=== PATIENT | female | born 1995 | race Caucasian/White ===

== ENCOUNTER 2021-07-03 00:09 | Inpatient (IN) | payer OTHER, SELFPAY ==
[2021-07-03] VITALS (37 sets, daily range): BP systolic 104–133; BP diastolic 54–91; PULSE 90–154; RESP 16–34; TEMP 36.2–38.1; O2SAT 93–100; BMI 25.7; BMI 41.4
--- NOTE | ~2021-07-03 | XR_ITS ---
EXAMINATION: XR chest 1V portable INDICATION: Cough and pneumomediastinum TECHNIQUE: Portable AP chest at 0845 hours COMPARISON: 0048 hours FINDINGS: The lungs are free of acute opacities. There is no pleural effusion or pneumothorax. Mild p neumomediastinum is again noted and not significantly changed. The heart size is normal. IMPRESSION: 1. Unchanged mild pneumomediastinum. Reviewed, dictated and finalized at location B.
--- NOTE | ~2021-07-03 | CT_ITS ---
EXAMINATION: CTA chest PE protocol EXAM DATE: 07/03/2021 01:33 INDICATION: Positive dimer. TECHNIQUE: Spiral CTA of the chest (pulmonary arteries) was performed with 100 cc Omnipaque 350 intr avenous contrast injection. Images were acquired during the pulmonary arterial phase. Coronal maxi mum intensity projection 3D-reconstructions were created by the technologist on dedicated workstation . Axial, coronal and sagittal reformatted images were reviewed. The dose-length product (DLP) for t his examination was 385.75 mGy-cm. The exposure was tailored according to patient size (auto mA exp osure control), and iterative reconstruction (ASIR) was used as additional dose reduction technique. There is no prior study for comparison. FINDINGS: There is moderate amount of pneumomediastinum. Pulmonary arteries are well opacified and wi thout intraluminal filling defects. No thoracic aortic dissection. Several small regions of groundg lass airspace disease, probably acute pneumonitis. Small pericardial effusion. Tracheobronchial tree is patent. There is no mediastinal, hilar or axi llary lymphadenopathy. There is moderate amount pneumomediastinum. There is no pneumothorax. Heart normal in size. No evidence of coronary arterial calcification. Upper abdomen is unremarkable. T here is thoracic spondylosis without osteoblastic or osteolytic lesions identified. IMPRESSION: 1. Moderate pneumomediastinum. 2. Several small regions groundglass airspace disease probably acute pneumonitis. Could be viral. 3. No pneumothorax suspected. Reviewed, dictated and finalized at location A. IMPRESSION: 1. Moderate pneumomediastinum. 2. Several small regions groundglass airspace disease probably acute pneumonit is. Could be viral. 3. No pneumothorax suspected.
--- NOTE | ~2021-07-03 | XR_ITS ---
EXAMINATION: XR chest 1V portable DATE: 07/04/2021 06:05 INDICATION: Pneumomediastinum TECHNIQUE: frontal view of the chest was obtained. COMPARISON: Chest radiograph dated 07/03/2021 FINDINGS: The lungs remain clear with no focal airspace opacities, pulmonary edema, pleural effusion or pneumot horax. Heart size is normal. Decrease in small amount of pneumomediastinum near the apex of the heart and at the superior mediastinum extending into the neck. IMPRESSION: 1. Decreasing mild pneumomediastinum. Clear lungs. Reviewed, dictated and finalized at location A.
--- NOTE | ~2021-07-03 | XR_ITS ---
EXAMINATION: XR chest 1V portable DATE: 07/05/2021 06:10 INDICATION: Cough TECHNIQUE: frontal view of the chest was obtained. COMPARISON: Chest radiograph dated 07/04/2021 FINDINGS: The lungs remain clear with no focal airspace opacities, pulmonary edema, pleural effusion or pneumot horax. The cardiomediastinal silhouette is normal. Visualized bones and soft tissues are unremarkable . IMPRESSION: 1. Normal chest radiograph. Reviewed, dictated and finalized at location A. IMPRESSION: 1. Normal chest radiograph.
--- NOTE | ~2021-07-03 | XR_ITS ---
EXAMINATION: XR chest 2V DATE: 07/03/2021 00:56 INDICATION: Chest tightness and shortness of breath TECHNIQUE: PA and lateral views of the chest were obtained. COMPARISON: Chest CT dated 07/03/2021 FINDINGS: The lungs are clear with no focal airspace opacities, pulmonary edema, pleural effusion or pneumothor ax. Heart size is normal. There is some pneumomediastinum seen near the apex of the heart and in the superior mediastinum extending into the neck. Visualized bones are unremarkable. IMPRESSION: 1. Pneumomediastinum which extends to the apex of the heart cephalad into the neck. 2. Clear lungs. Reviewed, dictated and finalized at location A. IMPRESSION: 1. Pneumomediastinum which extends to the apex of the heart cephalad into the n jerome. 2. Clear lungs.
--- NOTE | 2021-07-03 00:24 | ECG_ITS ---
Measurements Intervals [place] Rate: 141 P: 61 IA: 143 QRS: 104 QRSD: 78 T: 34 QT: 328 QTc: 504 Interpretive Statements SINUS TACHYCARDIA RIGHT AXIS DEVIATION DELAYED PRECORDIAL R/S TRANSITION LOW QRS VOLTAGE IN PRECORDIAL LEADS BORDERLINE ST-T WAVE ABNORMALITY- INFERIOR LEADS BASELINE ARTIFACT- I, II, III, AVR, AVL, AVF, V1, V3 ABNORMAL ECG Electronically Signed On 07-03-2021 6:16:04 CDT by Martinez Anthony D.O.
--- NOTE | 2021-07-03 00:27 | ED.GENADULT ---
HPI - General Adult General Chief complaint: Shortness of Breath/Dyspnea Stated complaint: shortness of breath Time Seen by Provider: 07/03/21 00:11 Source: patient Mode of arrival: ambulatory Limitations: no limitations History of Present Illness HPI narrative: Pt presents for evaluation of shortness of breath and chest tightness. She indicates symptoms started this morning. No history of similar symptoms. She cannot identify any precipitating event or cause. She states about one month ago she was on a cruise in [place] when she had what she thought was an ear infection. On further discussion it sounds as though she felt like her ear was clogged . She irrigated the ear and had improvement in her symptoms. She was never seen by a healthcare provider regarding this issue. Over the last week she has noted a headache and sinus congestion. Her symptoms seemed worse when she woke from sleep this am. She has noted hot flashes and chills today without vomiting or diarrhea. She does report coughing so hard that she feels nauseous. She is not on exogenous estrogen. No recent surgeries. No leg swelling. She does not smoke. No personal history of DVT, although her grandfather had a hx of clots. Her grandfather from [employer] in May of this year. She has received both doses of her [employer] COVID vaccine. No personal history of COVID. She states she had a hx of exercise induced asthma as a child but thought that she outgrew it. Related Data Home Medications Medication Instructions Recorded Confirmed No Home Medications 07/03/21 07/03/21 Allergies Allergy/AdvReac Type Severity Reaction Status Date / Time azithromycin Allergy Intermediate HIVES Verified 10/08/17 05:26 Review of Systems Review of Systems: CONSTITUTIONAL: Reports chills and subjective fever EYES: Denies visual changes, redness, or discharge. ENT: Reports left-sided otalgia and sinus congestion. Denies rhinorrhea or sore throat CARDIOVASCULAR: Reports chest tightness. Denies palpitations, or edema. RESPIRATORY: Reports productive cough of yellow sputum and SOB. GASTROINTESTINAL: Reports nausea with coughing episodes. Denies abdominal pain, vomiting, or diarrhea. GENITOURINARY: Denies dysuria or hematuria. SKIN: Denies rash or itching. MUSCULOSKELETAL: Denies back pain, joint pain, or myalgia. NEUROLOGIC: Denies headache, numbness, dizziness, or weakness. PSYCHIATRIC: Denies anxiety or depression. PMFSH Past Medical History Medical History (Updated 07/03/21 @ 02:39 by JENNIFER Vera, ) Asthma Surgical History Surgical History No pertinent past surgical history Family History Family History Mother No pertinent past medical history Social History Social History Smoking status: Never smoker Alcohol intake: current Alcohol use details: social Substance use: never Living arrangements: with family Gender identity (if verbalized by the patient): Female Sexual Orientation (if Verbalized by the Patient): Straight or Heterosexual Spiritual care concerns: No Exam Narrative: GENERAL: Well-appearing, well-nourished, and in no acute distress. HEAD: Normocephalic, atraumatic. EYES: PERRLA and EOMI. ENT: Nares clear, no rhinorrhea or epistaxis. Mucous membranes moist. Oropharynx without tonsillar hypertrophy exudate or other lesions. Bilateral TMs pearly arias nonbulging NECK: Supple. No adenopathy or masses. No carotid bruits or JVD CHEST: Mild inspiratory wheezing noted. Decreased breath sounds throughout HEART: Rate 140. Normal rhythm. No murmur heard. Normal peripheral pulses. ABDOMEN: Soft, nontender, nondistended, normal active bowel sounds. EXTREMITIES: Normal range of motion. No edema. SKIN: Warm, dry, no rash. NEURO: No foc
[2021-07-03] MEDS: ALBUTEROL SULFATE NEB 2.5 MG/3 ML INH INHALATION ×2 (00:33→01:07)
[2021-07-03] MEDS: IPRATROPIUM BR 0.02% INH SOLN 0.5 MG/2.5 ML VIAL INHALATION ×5 (00:33→20:32)
[2021-07-03] MEDS: methylPREDNISolone SOD SUCC 125 MG VIAL IV PUSH (00:36)
[2021-07-03] MEDS: SODIUM CHLORIDE 0.9% IV 1,000 ML 999 ML IV CONT (00:36)
[2021-07-03 00:48] LABS: INR 1.1; Prothrombin Time 13.6 Seconds (11.1-14.7)
[2021-07-03 00:49] LABS: Partial Thromboplastin Time 29.2 SECONDS (22.3-36.8)
[2021-07-03 00:50] LABS: Basophils Absolute Auto 0.1 K/mm3 (0.0-0.1); Basophils Percent Auto 0.3 % (0.2-1.2); Eosinophils Absolute Auto 0.1 K/mm3 (0-0.3); Eosinophils Percent Auto 0.7 % (0-4.4); Hematocrit 42.9 % (37.0-47.0); Hemoglobin 14.2 g/dL (12.0-15.0); Immature Granulocyte Absolute 0.05 K/mm3 (0.00-0.031); Immature Granulocyte Percent A 0.3 % (0-0.5); Lymphocytes Absolute Auto 0.85 K/mm3 (0.9-3.2); Lymphocytes Percent Auto 5.8 % (18.3-44.2); Mean Corpuscular HGB Conc 33.1 g/dl (32-36); Mean Corpuscular Hemoglobin 30.7 pg (26-34); Mean Corpuscular Volume 92.7 fl (80-100); Monocytes Absolute Auto 0.7 K/mm3 (0.1-0.6); Monocytes Percent Auto 4.7 % (2.6-8.5); Neutrophils Percent Auto 88.2 % (45.5-73.1); Platelet Count Result 377 k/mm3 (150-375); Red Blood Count 4.63 M/mm3 (4.2-5.4); Red Cell Distribution Width 11.6 % (11.5-14.5); White Blood Count 14.7 K/mm3 (4.5-10.0)
[2021-07-03 00:51] LABS: D Dimer 0.58 ug/mL (<0.48)
[2021-07-03 00:55] LABS: Alanine Aminotransferase 23 U/L (4-35); Albumin Level 4.2 g/dL (3.5-5.1); Alkaline Phosphatase 84 U/L (38-126); Anion Gap 9 mmol/L (8-16); Aspartate Amino Transferase 26 U/L (14-36); Bilirubin,Total 0.9 mg/dL (0.2-1.3); Blood Urea Nitrogen 10 mg/dL (7-17); Carbon Dioxide 25 mmol/L (22-30); Chloride 101 mmol/L (98-107); Estimated CRCL calculation 111 ml/min; Estimated Glomerular Filt Rate > 60; Glucose 123 mg/dL (65-110); Potassium 4.3 mmol/L (3.4-5.0); Sodium 135 mmol/L (137-145)
[2021-07-03 01:05] LABS: Troponin I < 0.012 ng/mL (0.000-0.034)
[2021-07-03 01:20] LABS: Lactic Acid Reflex 2.5 mmol/L (0.7-2.1)
[2021-07-03 01:39] LABS: Add Urine Microscopic? YES; Appearance Urine Cloudy (Clear); Bacteria Urine Trace /hpf; Bilirubin Urine Negative (Negative); Blood Urine Negative (Negative); Color Urine Yellow (Yellow); Glucose Urine UA Negative (Negative); Ketones Urine Negative (Negative); Leukocyte Esterase Ur Negative LEU/UL (Negative); Mucus Urine Rare /lpf; Nitrate Urine Negative (Negative); Protein Urine 1+ mg/dL (Negative); Squamous Epithelial Cell Urine Many /hpf (Few); Urobilinogen Urine Negative mg/dL (<2.0)
[2021-07-03 01:43] LABS: Specific Grav Ur 1.032 (1.001-1.035)
[2021-07-03 02:24] LABS: CRP 2.7 mg/dL (<1.0); Creatine Kinase 89 U/L (30-135); Lactate Dehydrogenase 460 U/L (313-618)
--- NOTE | 2021-07-03 02:36 | PM.IMHP ---
H&P: HPI History of Present Illness Date/Time: 07/03/21 02:36 Chief Complaint: Cough Narrative: This is a 25-year-old female with past medical history significant for exercise induced asthma as a kid no asthma as an adult, patient presented to the emergency room due to 2 days of cough shortness of breath cough is productive of whitish to greenish sputum subjective fevers,hills, no hemoptysis no sore throat no odynophagia no sick contacts that she is aware of ,she is vaccinated against COVID, denies any nausea any vomiting any abdominal pain any diarrhea she has been having spells of violent cough to the point to make her feel nauseous. Up until this she has been her usual state of health. Preliminary workup was significant for CT angio was negative for pulmonary embolism however it is showed a small pneumomediastinum, no infiltrates, a chest x-ray was clear, CBC showed a white count of 14,000, chemistry panel was unremarkable, CRP was 2.7 and lactic acid was 2.5. Decision has been made to place the patient in observation. Review of Systems Review of Systems: Cough, shortness of breath, headache, nausea. Constitutional: Constitutional: Reports chills, Reports fatigue, Reports fever(s), Reports night sweats and Reports poor appetite Eyes: Eyes: Denies change in vision ENT: Denies dysphagia, Denies vertigo, Denies dizziness, Reports nasal congestion, Denies nasal discharge, Denies nasal obstruction, Denies odynophagia, Reports sinus pressure and Denies sore throat Cardiovascular: Cardiovascular: Denies irregular heart rhythm, Denies claudication, Denies leg edema, Denies lightheadedness, Denies radiating jaw, neck or arm pain, Denies palpitations, Denies dyspnea on exertion, Denies orthopnea and Denies paroxysmal nocturnal dyspnea Respiratory: Respiratory: Reports cough, Denies hemoptysis, Reports excessive phlegm production, Denies pain with cough and Reports dyspnea Gastrointestinal: Gastrointestinal: Denies dyspepsia, Denies heartburn, Reports nausea and Denies vomiting Genitourinary: Genitourinary: Denies dysuria Musculoskeletal: Musculoskeletal: Denies arthralgias and Denies joint swelling Integumentary/Breasts: Skin/Breast: Denies rash Neurologic: Denies focal weakness and Denies Sensory deficit (Neuro) Psychiatric: Psychiatric: Reports no additional psychiatric complaints and Reports as per HPI Endocrine: Endocrine: Reports no additional endocrine complaints and Reports as per HPI Hematologic/Lymphatic: Hematologic/Lymphatic: Reports no additional hematologic/lymphatic complaints and Reports as per HPI Allergic/Immunologic: Allergic/Immunologic: Reports no additional allergic/immunologic complaints and Reports as per HPI [facility] Past Medical History Medical History (Updated 07/03/21 @ 04:01 by Mary Toth MD) Asthma Surgical History Surgical History No pertinent past surgical history Family History Family History Mother No pertinent past medical history Social History Social History Smoking status: Never smoker Second hand tobacco smoke exposure: No Alcohol intake: current Alcohol use details: social Substance use: never Substance use type: does not use Living arrangements: with family Gender identity (if verbalized by the patient): Female Sexual Orientation (if Verbalized by the Patient): Straight or Heterosexual Spiritual care concerns: No Meds Home Medications and Allergies Home Medications Medication Instructions Recorded Confirmed Type No Home Medications 07/03/21 07/03/21 History Allergies Allergy/AdvReac Type Severity Reaction Status Date / Time azithromycin Allergy Intermediate HIVES Verified 10/08/17 05:26 Vital Signs Vital Signs - 24 hr 07/03/21 00:14 07/03/21 00:1
--- NOTE | 2021-07-03 03:34 | PC.NURSE ---
This patient, Frederick Velez, was admitted to [address] [place] [address] Room 300-01. Patient/family oriented to hospital policies and general routines including ID bracelet, bed and alarms, visiting hours, pain management, procedures, bathroom and other care routines, personal items, smoking policy, room service/diet, and visiting hours. Information on how to activate the Rapid Response Team has been discussed. Patient/Family are encouraged to report perceived risks to care and to ask questions if they do not understand what they are told or what they should do.
[2021-07-03] MEDS: SODIUM CHLORIDE 0.9% IV 1,000 ML 125 ML IV CONT (03:37)
[2021-07-03] MEDS: ACETAMINOPHEN 325 MG TABLET 650 MG PO (03:40)
[2021-07-03 04:01] LABS: Reflex Lactic Acid Yes or No Add Lactic
[2021-07-03] MEDS: LEVALBUTEROL NEB 1.25 MG/3 ML 0.63 MG INHALATION ×3 (04:36→20:33)
[2021-07-03 04:50] LABS: Troponin I < 0.012 ng/mL (0.000-0.034)
[2021-07-03] MEDS: methylPREDNISolone SOD SUCC 40 MG VIAL IV PUSH (05:40)
[2021-07-03] MEDS: SODIUM CHLORIDE 0.9% IV 1,000 ML 100 ML IV CONT ×2 (06:55→21:09)
[2021-07-03] MEDS: ENOXAPARIN 40 MG/0.4 ML SYRINGE SUB-Q (07:56)
[2021-07-03] MEDS: guaiFENesin/CODEINE (*CRX) 200/20 MG 10 ML SYRUP PO ×3 (07:57→17:31)
[2021-07-03] MEDS: SODIUM CHLORIDE 0.9% IV 500 ML IV CONT (12:05)
[2021-07-03 12:30] LABS: Basophils Percent Auto 0.1 % (0.2-1.2); Hematocrit 35.4 % (37.0-47.0); Hemoglobin 12.3 g/dL (12.0-15.0); Immature Granulocyte Absolute 0.04 K/mm3 (0.00-0.031); Immature Granulocyte Percent A 0.4 % (0-0.5); Lymphocytes Absolute Auto 0.59 K/mm3 (0.9-3.2); Lymphocytes Percent Auto 6.6 % (18.3-44.2); Mean Corpuscular HGB Conc 34.7 g/dl (32-36); Mean Corpuscular Hemoglobin 30.8 pg (26-34); Mean Corpuscular Volume 88.5 fl (80-100); Mean Platelet Volume 10.1 fl (7.4-10.4); Monocytes Absolute Auto 0.1 K/mm3 (0.1-0.6); Monocytes Percent Auto 1.2 % (2.6-8.5); Neutrophils Absolute Auto 8.2 K/mm3 (1.3-6.7); Neutrophils Percent Auto 91.7 % (45.5-73.1); Platelet Count Result 302 k/mm3 (150-375); Red Cell Distribution Width 11.8 % (11.5-14.5)
[2021-07-03 12:36] LABS: D Dimer 0.43 ug/mL (<0.48)
[2021-07-03 12:43] LABS: Alanine Aminotransferase 23 U/L (4-35); Alkaline Phosphatase 76 U/L (38-126); Anion Gap 11 mmol/L (8-16); Aspartate Amino Transferase 22 U/L (14-36); Bilirubin,Total 0.7 mg/dL (0.2-1.3); Blood Urea Nitrogen 10 mg/dL (7-17); Calcium 9.5 mg/dL (8.4-10.2); Carbon Dioxide 23 mmol/L (22-30); Chloride 105 mmol/L (98-107); Estimated CRCL calculation 134 ml/min; Estimated Glomerular Filt Rate > 60; Glucose 169 mg/dL (65-110); Lactate Dehydrogenase 440 U/L (313-618); Sodium 139 mmol/L (137-145)
[2021-07-03 12:45] LABS: Lactic Acid Reflex 2.8 mmol/L (0.7-2.1)
--- NOTE | 2021-07-03 12:55 | PM.IMPN ---
Progress Note: A&P Assessment and Plan (1) Sepsis: Qualifiers: Sepsis acute organ dysfunction status: unspecified Sepsis type: sepsis due to unspecified organism Qualified Code(s): A41.9 - Sepsis, unspecified organism Code(s): A41.9 - Sepsis, unspecified organism Status: Acute Assessment and Plan: Patient meets SIRS criteria w/ persistent tachycardia in the 110s, leukocytosis of 14.7 w/ left shift. Also had lactate of 2.5 on arrival which trended up to 4.0 this morning. Unclear source of infection at this time. Blood cultures pending. CTA w/ no infiltrates to suggest pneumonia, however did have small ground glass opacities which were favored to be pneumonitis or less likely viral. COVID test pending. She is fully vaccinated. Initially was thought to be asthma vs bronchitis and was receiving nebs and IV steroids. Stopped steroids in the event she has a bacterial infection, lungs were CTA bilaterally on exam. Reduced nebs to q12, no wheezing on exam, 98% on RA. Received one dose doxycycline and Rocephin in the emergency room to cover for pneumonia, but upon admission these were stopped. I have started her on broad spectrum Vanc and Zosyn pending source of infection. Also gave 500 mL bolus as she continues to be tachycardic despite 1L IVF in ED and maintenance fluids at 100 ml/hr. UA negative but poor sample so will repeat clean catch. Will check CT abd/pelv as she does report some abdominal discomfort whenever she coughs. Also on differential is viral syndrome/COVID. Ordered ferritin, LDH, d dimer, and repeat lactate for further evaluation. She will remain on isolation pending covid test result. (2) Pneumomediastinum: Code(s): J98.2 - Interstitial emphysema Status: Acute Assessment and Plan: Likely secondary to violent cough Repeat CXR today shows no progression Will continue to monitor with daily CXR (3) URI (upper respiratory infection): Code(s): J06.9 - Acute upper respiratory infection, unspecified Status: Acute Assessment and Plan: See above. Violent/forceful cough x 2 days. Currently attempting to determine bacterial vs viral. Receiving broad spectrum abx and nebs w/ atrovent and xopenex due to tachycardia. Hx of exercise induced asthma as a child but not as an adult. No wheezing on exam. IV steroids discontinued at this time. Reduced nebs to q12 hrs as she is 98% on RA and does not currently have any sob. Subjective Date/time seen: 07/03/21 08:55 This is a 25-year-old female with past medical history significant for exercise induced asthma as a kid no asthma as an adult, patient presented to the emergency room due to 2 days of cough shortness of breath, productive cough, and subjective fever. She has been having spells of violent cough which have caused her to have some chest discomfort and abdominal soreness whenever she coughs. Preliminary workup was significant for CT angio was negative for pulmonary embolism however it is showed moderate pneumomediastinum and small ground glass opacities. CBC showed a white count of 14,000, chemistry panel was unremarkable, CRP was 2.7 and lactic acid was 2.5. Patient was admitted for observation. Today she is feeling the same. Continues to have productive cough. No sob. Reports chest pain and abdominal pain w/ deep inspiration. No fevers overnight. Does have persistent tachycardia despite IVF 1L bolus and maintenance fluids at 100 ml/hr. Based on tachycardia and leukocytosis pt meets SIRS criteria. Review of Systems Review of Systems: General: + fevers, +chills Eyes: Denies vision changes or eye pain ENT: Denies nasal congestion or sore throat Respiratory: + cough, no shortness of breath Cardiovascular: + chest pain, no lower extremity edema Gastrointestinal: + abdominal pain w/ cough, no vomiting or diarrhea Genitourinary: Denies dysuria or urinary frequency Musculoskeletal: Denies back pain or
[2021-07-03 18:04] LABS: Influenza Control Positive
[2021-07-03 18:29] LABS: SARS-CoV-2 RNA PCR Negative
[2021-07-04] VITALS (13 sets, daily range): BP systolic 102–156; BP diastolic 57–87; PULSE 80–119; RESP 16–18; TEMP 36.1–36.8; O2SAT 95–98
[2021-07-04] MEDS: guaiFENesin/CODEINE (*CRX) 200/20 MG 10 ML SYRUP PO ×4 (00:01→18:28)
[2021-07-04 06:07] LABS: Basophils Percent Auto 0.3 % (0.2-1.2); Eosinophils Absolute Auto 0.1 K/mm3 (0-0.3); Eosinophils Percent Auto 0.3 % (0-4.4); Hematocrit 35.2 % (37.0-47.0); Hemoglobin 11.5 g/dL (12.0-15.0); Immature Granulocyte Absolute 0.08 K/mm3 (0.00-0.031); Immature Granulocyte Percent A 0.5 % (0-0.5); Lymphocytes Absolute Auto 1.85 K/mm3 (0.9-3.2); Lymphocytes Percent Auto 12.4 % (18.3-44.2); Mean Corpuscular HGB Conc 32.7 g/dl (32-36); Mean Corpuscular Hemoglobin 30.7 pg (26-34); Mean Corpuscular Volume 93.9 fl (80-100); Mean Platelet Volume 10.2 fl (7.4-10.4); Monocytes Percent Auto 6.9 % (2.6-8.5); Neutrophils Absolute Auto 11.8 K/mm3 (1.3-6.7); Neutrophils Percent Auto 79.6 % (45.5-73.1); Platelet Count Result 300 k/mm3 (150-375); Red Blood Count 3.75 M/mm3 (4.2-5.4); Red Cell Distribution Width 12.3 % (11.5-14.5); White Blood Count 14.9 K/mm3 (4.5-10.0)
[2021-07-04 06:11] LABS: Alanine Aminotransferase 21 U/L (4-35); Albumin Level 3.6 g/dL (3.5-5.1); Alkaline Phosphatase 66 U/L (38-126); Anion Gap 8 mmol/L (8-16); Aspartate Amino Transferase 20 U/L (14-36); Bilirubin,Total 0.5 mg/dL (0.2-1.3); Blood Urea Nitrogen 12 mg/dL (7-17); Calcium 8.8 mg/dL (8.4-10.2); Carbon Dioxide 26 mmol/L (22-30); Chloride 106 mmol/L (98-107); Estimated CRCL calculation 118 ml/min; Estimated Glomerular Filt Rate > 60; Glucose 99 mg/dL (65-110); Potassium 3.9 mmol/L (3.4-5.0); Sodium 140 mmol/L (137-145)
[2021-07-04 09:10] LABS: Lactic Acid Reflex 0.9 mmol/L (0.7-2.1)
[2021-07-04] MEDS: ENOXAPARIN 40 MG/0.4 ML SYRINGE SUB-Q (09:28)
[2021-07-04] MEDS: IPRATROPIUM BR 0.02% INH SOLN 0.5 MG/2.5 ML VIAL INHALATION ×2 (10:28→20:22)
[2021-07-04] MEDS: LEVALBUTEROL NEB 1.25 MG/3 ML 0.63 MG INHALATION ×2 (10:29→20:22)
[2021-07-04] MEDS: SODIUM CHLORIDE 0.9% IV 1,000 ML 50 ML IV CONT (12:17)
[2021-07-04] MEDS: diphenhydrAMINE HCl INJ 50 MG/ML VIAL 25 MG IV PUSH (15:04)
--- NOTE | 2021-07-04 16:28 | PM.IMPN ---
Progress Note: A&P Assessment and Plan (1) Sepsis: Qualifiers: Sepsis acute organ dysfunction status: unspecified Sepsis type: sepsis due to unspecified organism Qualified Code(s): A41.9 - Sepsis, unspecified organism Code(s): A41.9 - Sepsis, unspecified organism Status: Acute Assessment and Plan: -Patient meets SIRS criteria w/ persistent tachycardia in the 110s, leukocytosis of 14.7 w/ left shift. Also had lactate of 2.5 on arrival which trended up to 4.0. Unclear source of infection at this time. -Blood cultures prelim negative. -CTA w/ no infiltrates to suggest pneumonia, however did have small ground glass opacities which were favored to be pneumonitis or less likely viral. Atypical vs viral pneumonia? Ordered sputum culture. Pertussis pending. -COVID/flu negative. 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 -Initially was thought to be asthma exacerbation vs bronchitis on admission and was receiving nebs and IV steroids. Stopped steroids yesterday the event she has a bacterial infection, lungs were CTA bilaterally on exam. Today she does have scattered wheezes. Will continue nebs. -Received one dose doxycycline and Rocephin in the emergency room to cover for pneumonia, but upon admission these were stopped. She was started on broad spectrum Vanc and Zosyn pending source of infection. Blood cultures prelim negative pending final result. WBC increased however suspect secondary to steroids. Repeat lactate 0.9. Will consider stopping abx tomorrow s/p repeat CXR and finalized negative blood cultures. No fevers x24 hours. Tachycardia improved. (2) Pneumomediastinum: Code(s): J98.2 - Interstitial emphysema Status: Acute Assessment and Plan: Likely secondary to violent cough Repeat CXR today shows improvement Continue Guaifeesin/Codeine to minimize cough Will continue to monitor with daily CXR (3) URI (upper respiratory infection): Code(s): J06.9 - Acute upper respiratory infection, unspecified Status: Acute Assessment and Plan: See above. Violent/forceful cough. Currently attempting to determine etiology. Receiving broad spectrum abx and nebs w/ atrovent and xopenex due to tachycardia. Hx of exercise induced asthma as a child but not as an adult. Does have scattered wheezing on exam. Reduced nebs to q12 hrs as she is 98% on RA and does not currently have any sob. Subjective Date/time seen: 07/04/21 16:28 Interval history: This is a 25-year-old female with past medical history significant for exercise induced asthma as a kid no asthma as an adult, patient presented to the emergency room due to 2 days of cough shortness of breath, productive cough, and subjective fever. She was subsequently admitted for possible pneumonia and pneumomediastinum. Today she states her cough is worse and she had a 1 hour episode of itching and states her face was red. She is still mildly short of breath. No fevers. Review of Systems Review of Systems: General: no fevers, +chills Eyes: Denies vision changes or eye pain ENT: Denies nasal congestion or sore throat Respiratory: + cough, + shortness of breath Cardiovascular: + chest pain, no lower extremity edema Gastrointestinal: no abdominal pain, no vomiting or diarrhea Genitourinary: Denies dysuria or urinary frequency Musculoskeletal: Denies back pain or neck pain Neurological: Denies headache, paraesthesias, or motor weakness Integumentary: Denies rash Exam Narrative: General: No acute distress, non toxic appearing Eyes: PERRL, no scleral icterus HEENT: NCAT, external ears normal, MMM, normal pharynx Respiratory: No respiratory distress, scattered expiratory wheezes, no crackles or rhonchi Chest Wall: No crepitus Cardiovascular: tachycardic, regular rhythm Abdominal: Soft, nontender, non distended, no rebound or guarding Musculoskeletal: Moves a
[2021-07-05] VITALS (9 sets, daily range): BP systolic 112; BP diastolic 61; PULSE 78–108; RESP 18–20; TEMP 36.4–36.8; O2SAT 97–100
[2021-07-05] MEDS: guaiFENesin/CODEINE (*CRX) 200/20 MG 10 ML SYRUP PO ×3 (00:36→11:42)
[2021-07-05 02:01] LABS: Vancomycin Trough 13.3 ug/mL (10.0-20.0)
[2021-07-05 05:34] LABS: Basophils Absolute Auto 0.1 K/mm3 (0.0-0.1); Basophils Percent Auto 0.6 % (0.2-1.2); Eosinophils Absolute Auto 0.6 K/mm3 (0-0.3); Eosinophils Percent Auto 7.9 % (0-4.4); Hematocrit 32.1 % (37.0-47.0); Hemoglobin 10.4 g/dL (12.0-15.0); Immature Granulocyte Absolute 0.03 K/mm3 (0.00-0.031); Immature Granulocyte Percent A 0.4 % (0-0.5); Lymphocytes Absolute Auto 2.12 K/mm3 (0.9-3.2); Lymphocytes Percent Auto 26.6 % (18.3-44.2); Mean Corpuscular HGB Conc 32.4 g/dl (32-36); Mean Corpuscular Volume 92.5 fl (80-100); Mean Platelet Volume 9.9 fl (7.4-10.4); Monocytes Absolute Auto 0.6 K/mm3 (0.1-0.6); Monocytes Percent Auto 7.8 % (2.6-8.5); Neutrophils Absolute Auto 4.5 K/mm3 (1.3-6.7); Neutrophils Percent Auto 56.7 % (45.5-73.1); Platelet Count Result 257 k/mm3 (150-375); Red Blood Count 3.47 M/mm3 (4.2-5.4); Red Cell Distribution Width 12.8 % (11.5-14.5)
[2021-07-05 05:35] LABS: Lactic Acid Reflex 1.2 mmol/L (0.7-2.1)
[2021-07-05 05:40] LABS: Anion Gap 6 mmol/L (8-16); Blood Urea Nitrogen 12 mg/dL (7-17); Calcium 8.7 mg/dL (8.4-10.2); Carbon Dioxide 25 mmol/L (22-30); Chloride 107 mmol/L (98-107); Estimated CRCL calculation 106 ml/min; Estimated Glomerular Filt Rate > 60; Glucose 101 mg/dL (65-110); Potassium 3.8 mmol/L (3.4-5.0); Sodium 138 mmol/L (137-145)
[2021-07-05 05:52] LABS: Estimated CRCL calculation 106 ml/min; Estimated Glomerular Filt Rate > 60
[2021-07-05] MEDS: LEVALBUTEROL NEB 1.25 MG/3 ML 0.63 MG INHALATION (07:51)
[2021-07-05] MEDS: IPRATROPIUM BR 0.02% INH SOLN 0.5 MG/2.5 ML VIAL INHALATION (07:51)
[2021-07-05] MEDS: ENOXAPARIN 40 MG/0.4 ML SYRINGE SUB-Q (08:55)
--- NOTE | 2021-07-05 12:03 | PM.DS ---
DS: Admitting Diagnosis Discharge Date 07/05/21 Admitting Diagnosis Pneumomediastinum DS: Discharge Diagnosis Discharge Diagnosis (1) Sepsis: Qualifiers: Sepsis acute organ dysfunction status: unspecified Sepsis type: sepsis due to unspecified organism Qualified Code(s): A41.9 - Sepsis, unspecified organism Code(s): A41.9 - Sepsis, unspecified organism Status: Acute Assessment and Plan: -Patient met SIRS criteria w/ persistent tachycardia in the 110s, leukocytosis of 14.7 w/ left shift. Also had lactate of 2.5 on arrival which trended up to 4.0. Unclear source of infection on arrival. -CTA w/ no infiltrates to suggest pneumonia, however did have small ground glass opacities which were favored to be pneumonitis or less likely viral. Atypical vs viral pneumonia? Sputum culture pending. Pertussis pending. Will follow up s/p discharge. -COVID/flu negative. 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 -Initially was thought to be asthma exacerbation vs bronchitis on admission and was receiving nebs and IV steroids. Stopped steroids in the event she has a bacterial infection, lungs were CTA bilaterally on exam. Next day she did have scattered wheezes. Will continue nebs. Consider restarting steroids. -Received one dose doxycycline and Rocephin in the emergency room to cover for pneumonia, but upon admission these were stopped. She was started on broad spectrum Vanc and Zosyn pending source of infection. Blood cultures prelim negative pending final result, will f/u s/p discharge. WBC increased temporarily, however suspect secondary to steroids as this is back down WNL today. Repeat lactate WNL. -Blood cultures negative, IV abx were stopped. Vitals have normalized, tachycardia and fever have both resolved. Leukocytosis also resolved. -CXR today clear, no infiltrates or opacities. Suspect viral etiology however will cover for atypicals with Levaquin (azithromycin allergy). At this time she is well appearing in no distress with stable vitals and is stable for discharge. Return precautions were provided. (2) Pneumomediastinum: Code(s): J98.2 - Interstitial emphysema Status: Acute Assessment and Plan: Likely secondary to violent cough Repeat CXR daily showed improvement, today resolved completely. Continue Guaifenesin/Codeine were given to minimize cough, will continue this on discharge. (3) URI (upper respiratory infection): Code(s): J06.9 - Acute upper respiratory infection, unspecified Status: Acute Assessment and Plan: See above. Violent/forceful cough. Unclear etiology. Likely viral but will cover w/ Levaquin (azithromycin allergy) for atypicals. Continue codeine cough syrup on dc. 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 She was subsequently admitted for possible pneumonia and pneumomediastinum. Please see HPI for further details. Hospital Course: Please see above for details of hospital course. Status at Discharge Cognitive/behavioral status at discharge: stable Functional status at discharge: independent ambulation Overall status at discharge: patient is progressing back to baseline Time Spent with Patient Time attestation: Total time spent providing and/or coordinating discharge services: 32 Time spent: Greater than 30 minutes Exam Narrative: General: No acute distress, non toxic appearing Eyes: PERRL, no scleral icterus HEENT: NCAT, external ears normal, MMM Respiratory: No respiratory distress, scattered expiratory wheezes, no crackles or rhonchi Chest Wall: No crepitus Cardiovascular: tachycardic, regular rh
--- NOTE | 2021-07-05 16:47 | PC.NURSE ---
On 07/05/21, the student, Eun [facility], provided care and completed [employer] documentation on this patient. I have reviewed the student's documentation and agree with the findings.
--- NOTE | 2021-07-06 11:49 | PC.NURSE ---
Sputum cx not ran due to contaminated specimen.
--- NOTE | 2021-07-11 09:54 | PC.NURSE ---
Pertussis and Resp. virus cx are both negative Blood cx are negative
== END 2021-07-05 15:05 | disposition home or self-care (01) | DRG 195 ==
LOC: ANHED 02:39 → ANH3MEDSUR 06:45
PROVIDERS: Internal Medicine; Admitting Provider Internal Medicine; Emergency Provider Nurse Practitioner; Visit Provider Physician Assistant
DX: J12.9 Viral pneumonia, unspecified (principal); J98.2 Interstitial emphysema; Z20.822 Contact with and (suspected) exposure to COVID-19; Z28.21 Immunization not carried out because of patient refusal
CPT/HCPCS: 36415; 71045; 71046; 71275; 80048; 80053; 80202; 81001; 81025; 82550; 82565; 82728; 83605; 83615; 84484; 85025; 85380; 85610; 85730; 86140; 87040; 87070; 87081; 87205; 87426; 87798; 87804; 93005; 94640; 96365; 96375; 99285; A9270; C9803; J0696; J1200; J1650; J2543; J2920; J2930; J3370; J7030; J7040; Q9967; U0003; U0005